=== PATIENT | male | born 1965 | race African-American/Black ===

== ENCOUNTER 2019-05-15 09:24 | Day surgery (SDC) | payer BC ==
[2019-05-14 13:53] VITALS: BMI 30.5
[2019-05-15 12:25] VITALS: TEMP 97.9
[2019-05-15 13:05] VITALS: BP 121/67; PULSE 55
--- NOTE | 2019-05-16 18:44 | PATH ---
Surgical Pathology Report Patient Name: JERICA SUAREZ [facility]. Rec. #: [id number] /Age/Gender: 1965 (Age: 54) / M Account: [id number] Location: [facility]-ENDOSCOPY Taken: 05/15/2019 Received: 05/15/2019 Reported: 05/16/2019 Physicians: Sandeep Luna D.O. Specimen(s) Received A: RIGHT COLON BIOPSY B: BX TRANSVERSE COLON C: TRANSVERSE COLON POLYP D: BX DESCENDING COLON E: RECTAL POLYP Clinical History Screening, change in bowel habits Postoperative diagnosis: Diverticulosis, colon polyps, hemorrhoids Final Diagnosis A. RIGHT COLON, BIOPSY: COLONIC MUCOSA WITH NO SIGNIFICANT PATHOLOGIC CHANGE. NO HISTOLOGIC EVIDENCE OF MICROSCOPIC COLITIS. B. TRANSVERSE COLON, BIOPSY: COLONIC MUCOSA WITH REACTIVE LYMPHOID AGGREGATE IN THE LAMINA PROPRIA. NO HISTOLOGIC EVIDENCE OF MICROSCOPIC COLITIS. C. TRANSVERSE COLON POLYP, POLYPECTOMY: TUBULAR ADENOMA. D. DESCENDING COLON, BIOPSY: COLONIC MUCOSA WITH NO SIGNIFICANT PATHOLOGIC CHANGE. NO HISTOLOGIC EVIDENCE OF MICROSCOPIC COLITIS. E. RECTAL POLYP, POLYPECTOMY: TUBULAR ADENOMA. Electronically Signed Miguel Angel Mcfadden M.D. Gross Description A. Received in formalin, labeled "right colon biopsy" are 2 gavin, irregular portions of soft tissue averaging 0.3 cm. in greatest dimension. The specimens are submitted in toto in one cassette. B. Received in formalin, labeled "transverse colon biopsy" are 4 gavin, irregular portions of soft tissue ranging from 0.2-0.5 cm. in greatest dimension. The specimens are submitted in toto in one cassette. C. Received in formalin, labeled "transverse colon polyp" is a gavin, irregular portion of soft tissue measuring 0.3 cm. in greatest dimension. The specimen is submitted in toto in one cassette. D. Received in formalin, labeled "descending colon biopsy" are 2 gavin, irregular portions of soft tissue averaging 0.4 cm. in greatest dimension. The specimens are submitted in toto in one cassette. E. Received in formalin, labeled "rectum polyp" is a gavin, irregular portion of soft tissue measuring 0.4 cm. in greatest dimension. The specimen is submitted in toto in one cassette. DL05/15/2019 saudi05/15/2019
== END 2019-05-15 13:05 | disposition home or self-care (01) ==
LOC: JASU-ENDO 09:24
PROVIDERS: ATTEND Internal Medicine Gastroenterology
PROC: 0DBL8ZX Excision of Transverse Colon, Via Natural or Artificial Opening Endoscopic, Diagnostic (ICD-10-PCS; 2019-05-15)
PROC: 0DBP8ZX Excision of Rectum, Via Natural or Artificial Opening Endoscopic, Diagnostic (ICD-10-PCS; principal; 2019-05-15 10:15)
DX: Z12.11 Encounter for screening for malignant neoplasm of colon (principal); D12.3 Benign neoplasm of transverse colon; K62.1 Rectal polyp; K57.30 Diverticulosis of large intestine without perforation or abscess without bleeding; K64.8 Other hemorrhoids
CPT/HCPCS: 88305-TC

== ENCOUNTER 2019-05-22 08:46 | Day surgery (SDC) | payer BC ==
[2019-05-22 08:55] VITALS: BMI 30.5
[2019-05-22 10:44] VITALS: TEMP 97.7
[2019-05-22 15:20] VITALS: BP 115/77; PULSE 60
--- NOTE | 2019-05-26 14:26 | PATH ---
Surgical Pathology Report Patient Name: JERICA SUAREZ [facility]. Rec. #: [id number] /Age/Gender: 1965 (Age: 54) / M Account: [id number] Location: [facility]-ENDOS[facility] Taken: 05/22/2019 Received: 05/22/2019 Reported: 05/26/2019 Physicians: Sandeep Luna D.O. Specimen(s) Received A: ANGULARIS AND BODY BIOPSY B: FUNDUS POLYP BIOPSY C: BX GE JUNCTION D: BX ESOPHAGUS PLAQUE DISTAL Clinical History Gastric reflux Postoperative diagnosis: Duodenitis, gastric polyp, sliding hiatal hernia, esophageal plaque Final Diagnosis A. ANGULARIS AND BODY, BIOPSY: MILD CHRONIC ACTIVE GASTRITIS. IMMUNOSTAIN IS NEGATIVE FOR H. PYLORI ORGANISMS. B. FUNDUS, POLYP, BIOPSY: GASTRIC FUNDIC GLAND POLYP. IMMUNOSTAIN IS NEGATIVE FOR H. PYLORI ORGANISMS. C. GE JUNCTION, BIOPSY: ESOPHAGO-GASTRIC JUNCTIONAL (SQUAMOCOLUMNAR) MUCOSA SHOWING MODERATE ACUTE ESOPHAGITIS IN A BACKGROUND OF REFLUX-ASSOCIATED CHANGES. NEGATIVE FOR INTESTINAL METAPLASIA. PAS STAIN IS NEGATIVE FOR FUNGAL ORGANISMS. D. DISTAL ESOPHAGUS, PLAQUE, BIOPSY: ESOPHAGEAL (SQUAMOUS) MUCOSA SHOWING MODERATE ACUTE ESOPHAGITIS IN A BACKGROUND OF REFLUX-ASSOCIATED CHANGES. PAS STAIN SHOWS NUMEROUS FUNGAL ORGANISMS, CONSISTENT WITH ABDON SPECIES. NO COLUMNAR EPITHELIUM/INTESTINAL METAPLASIA IS IDENTIFIED. Electronically Signed Dayana Gandhi M.D. Gross Description A. Received in formalin, labeled "biopsy angularis and body" are 5 gavin, irregular portions of soft tissue ranging from 0.1-0.3 cm. in greatest dimension. The specimens are submitted in toto in one cassette. B. Received in formalin, labeled "biopsy fundus polyp" are 2 gavin, irregular portions of soft tissue measuring 0.3 and 0.4 cm. in greatest dimension. The specimens are submitted in toto in one cassette. C. Received in formalin, labeled "biopsy GE junction" are 3 gavin, irregular portions of soft tissue ranging from 0.2-0.3 cm. in greatest dimension. The specimens are submitted in toto in one cassette. D. Received in formalin, labeled "biopsy esophageal plaque distal esophagus" are 2 gavin, irregular portions of soft tissue averaging 0.3 cm. in greatest dimension. The specimens are submitted in toto in one cassette. 05/22/20192019
== END 2019-05-22 11:35 | disposition home or self-care (01) ==
LOC: JASU-ENDO 08:46
PROVIDERS: ATTEND Internal Medicine Gastroenterology
PROC: 0DB68ZX Excision of Stomach, Via Natural or Artificial Opening Endoscopic, Diagnostic (ICD-10-PCS; 2019-05-22)
PROC: 0DB58ZX Excision of Esophagus, Via Natural or Artificial Opening Endoscopic, Diagnostic (ICD-10-PCS; 2019-05-22)
PROC: 0DB48ZX Excision of Esophagogastric Junction, Via Natural or Artificial Opening Endoscopic, Diagnostic (ICD-10-PCS; principal; 2019-05-22 09:30)
DX: K20.8 Other esophagitis (principal); K29.50 Unspecified chronic gastritis without bleeding; K31.7 Polyp of stomach and duodenum; K44.9 Diaphragmatic hernia without obstruction or gangrene
CPT/HCPCS: 88305-TC; 88312-TC; 88342-TC

== ENCOUNTER 2021-06-08 15:26 | Emergency (ER) | payer BC ==
[2021-06-08 15:52] VITALS: BP 119/74; PULSE 100; TEMP 97.8; BMI 30.1
== END 2021-06-08 18:22 | disposition home or self-care (01) ==
LOC: JER 15:26
DX: U07.1 COVID-19 (principal); Z11.52 Encounter for screening for COVID-19
CPT/HCPCS: 71046-TC-FY; 87804; 99284-25; C9803; U0003; U0005

== ENCOUNTER 2022-08-17 04:20 | Day surgery (SDC) | payer BC ==
[2022-08-15 16:44] VITALS: BMI 31.5
[2022-08-17] MEDS ORDERED: KETAMINE HCL 500 MG/10 ML VIAL ONE (07:09)
[2022-08-17 09:00] VITALS: TEMP 97.2
[2022-08-17 09:27] VITALS: PULSE 66
[2022-08-17 12:05] VITALS: BP 104/67; RESP 20
== END 2022-08-17 09:37 | disposition home or self-care (01) ==
LOC: JASU-ENDO 04:20
PROVIDERS: ATTEND Internal Medicine Gastroenterology
PROC: 0DBP8ZX Excision of Rectum, Via Natural or Artificial Opening Endoscopic, Diagnostic (ICD-10-PCS; 2022-08-17)
PROC: 0DBK8ZX Excision of Ascending Colon, Via Natural or Artificial Opening Endoscopic, Diagnostic (ICD-10-PCS; principal; 2022-08-17 08:00)
DX: Z12.11 Encounter for screening for malignant neoplasm of colon (principal); K57.30 Diverticulosis of large intestine without perforation or abscess without bleeding; D12.2 Benign neoplasm of ascending colon; K62.1 Rectal polyp; K64.8 Other hemorrhoids
CPT/HCPCS: 88305-TC

== ENCOUNTER 2023-03-27 04:44 | Day surgery (SDC) | payer BC ==
[2023-03-26 10:46] VITALS: BMI 31.7
[2023-03-27 11:46] VITALS: TEMP 97.4
[2023-03-27 12:12] VITALS: RESP 20
[2023-03-27 12:15] VITALS: BP 108/69; PULSE 68
== END 2023-03-27 12:15 | disposition home or self-care (01) ==
LOC: JASU-ENDO 04:44
PROVIDERS: ATTEND Internal Medicine Gastroenterology
PROC: 3E0H8KZ Introduction of Other Diagnostic Substance into Lower GI, Via Natural or Artificial Opening Endoscopic (ICD-10-PCS; 2023-03-27)
PROC: 0DBN8ZX Excision of Sigmoid Colon, Via Natural or Artificial Opening Endoscopic, Diagnostic (ICD-10-PCS; principal; 2023-03-27 10:45)
DX: K52.89 Other specified noninfective gastroenteritis and colitis (principal); K64.8 Other hemorrhoids; K57.30 Diverticulosis of large intestine without perforation or abscess without bleeding
CPT/HCPCS: 88305-TC